=== PATIENT | male | born 1980 | race Two or more races ===

== ENCOUNTER 2019-10-25 10:02 | Emergency (ER) | payer OTHER ==
[~2019-10-25] VITALS: Ht 167.6 cm; Wt 80.0 kg
[2019-10-25] MEDS ORDERED: IV NORMAL SALINE 1000ML BAG 1,000 ML IV SCH (11:08)
[2019-10-25] MEDS ORDERED: ONDANSETRON PF 4 MG/2 ML VIAL. IVP ONE (11:15)
[2019-10-25] MEDS ORDERED: MORPHINE SULFATE 4 MG/ML VIAL. IV/SQ PRN (11:15)
--- NOTE | 2019-10-25 11:15 | PHYS DOC ---
General Adult EDM: Chief Complaint: ABDOMINAL PAIN HPI: HPI: 39-year-old male with no significant past medical history, resents to the ED with his with complaints of sudden onset sharp stabbing nonradiating abdominal pain located just under his bellybutton and now in his right lower quadrant with associated nausea and sweating, that started this morning- reports he's been curled up in a ball since. Pain is worsened with any deep breaths or coughing. Pain is manageable when lying still. No pain prior to sleep - ate spicy beef jerkey, pizza and bbq last night for dinner (hasn't been able to eat/drink today), no recent alcohol/drug use. PSH-head surgery 2/2 screw in his head. LBM was brown, 2 days ago. Review of systems: Denies associated fever, chills, sore throat, cough, vomiting, diarrhea, back pain, genital pain or rash, dysuria, hematuria, flank pain, melena, hematochezia, leg swelling, headache, neck stiffness, hemoptysis, chest pain or pressure, dyspnea. PMD is Fazal Gordon Current Medications: Current Medications Medications (Trade) Dose Ordered Sig/Natalia Start Time Stop Time Status Last Admin Dose Admin Morphine Sulfate (Morphine Sulfate) 4 mg PRN Q15MIN PRN 10/25/19 11:15 10/26/19 11:14 UNV Ondansetron HCl (Zofran) 4 mg 1X ONCE 10/25/19 11:15 10/25/19 11:16 UNV Sodium Chloride 1,000 ml @ 1,000 mls/hr Q1H 10/25/19 11:08 10/25/19 12:07 UNV Physical Exam: PE: Constitutional: Well developed, well nourished, no acute distress, non-toxic appearance. [] HENT: Normocephalic, atraumatic, oropharynx moist, Eyes: EOMI, conjunctiva normal, no discharge. [] Neck: Normal range of motion, no tenderness, supple, no stridor. [] Cardiovascular:Heart rate regular rhythm, no murmur [] Lungs & Thorax: Bilateral breath sounds clear to auscultation [] Abdomen: Bowel sounds normal, soft, +rlq ttp, no masses, no pulsatile masses, no rovsing sign, no murphys sign Skin: Warm, dry, no erythema, no rash. [] Back: No tenderness, no CVA tenderness. [] Extremities: No tenderness, no cyanosis, no clubbing, ROM intact, no edema. [] Neurologic: Alert and oriented X 3, normal motor function, normal sensory function, no focal deficits noted. [] Psychologic: Affect normal, judgement normal, mood normal. [] EKG: EKG: [] Radiology/Procedures: Radiology/Procedures: IMAGING REPORT Signed PATIENT: FARIDA SNELL AACCOUNT: [id number] : 1980 LOCATION: ER AGE: 39 SEX: M EXAM STATUS: REG ER ORD. PHYSICIAN: RACHELLE NUNEZ DO REASON: RLQ pain today PROCEDURE: CT ABD PELV W/ IV CONTRST ONLY Examination: CT of the abdomen pelvis with IV contrast HISTORY: History of right lower quadrant abdominal pain COMPARISON: None available Technique: Axial CT images of the abdomen pelvis were performed with IV contrast. Coronal and sagittal reformats are performed Exposure: One or more of the following individualized dose reduction techniques were utilized for this examination: 1. Automated exposure control 2. Adjustment of the mA and/or kV according to patient size 3. Use of iterative reconstruction technique FINDINGS: Minimal bibasilar lung atelectasis. No evidence of free air identified in the abdomen. Decreased attenuation noted in the liver likely hepatic steatosis. The spleen, adrenals grossly appears unremarkable. Gallbladder is mildly distended. The stomach is mildly distended with visualized pancreas grossly appears unremarkable. The small bowel is nondilated. Appendix is normal. Feces and gas noted in the colon Urinary bladder is mildly distended The bilateral kidneys enhance symmetrically No evidence of lytic bony destructive lesion. IMPRESSION: 1. No acute intra-abdominal findings. 2. Hepatic steatosis. Course & Med Decision Making: Course & Med Decision Making Pertinent Labs and Imaging studies reviewed. (See chart for details) Concern for right lower quadrant abdominal pain, on reevaluation patient states pain resolved after he was given IV morphine. Patient states pain is very positional and worsens with any increased abdominal pressure. 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 Labs show no leukocytosis, patient is afebrile, urinalysis normal and no acute process on CT abdomen pelvis (normal appendix, some gas and feces noted in colon, mildly dilated gallbladder but patient has no right upper quadrant pain). Will DC home with analgesia and stool softeners with strict ED return precautions for worsening or severe abdominal pain or dehydration or fever. Encouraged urgent outpatient follow-up with PMD and GI. Life- threatening processes were considered but are low suspicion at this time, given history and physical exam. Pt was educated on all prescription medications and adverse effects. All patient's questions were answered and pt was stable at time of discharge. Differential includes aortic dissection, aortic aneurysm, acute coronary syndrome, surgical abdomen (appendicitis, cholecystitis, ischemic bowel, strangu lated hernia, etc), bowel obstruction or volvulus, bladder outlet obstruction, gastrointestinal bleeding, inflammatory bowel disease, peptic ulcer disease, sepsis, diverticular disease, ureterolithiasis, nephrolithiasis, ovarian or testicular torsion, ectopic I spoken with the patient and her caregivers. I explained the patient's condition, diagnoses and treatment plan based on the information available to me at this time. I have answered the patient and her caregiver's questions and addressed any concerns. The patient and her caregivers have a good understanding of patient's diagnosis, condition and treatment plan as can be expected at this point. Vital signs have been stable. Patient's condition is stable and appropriate for discharge from the emergency department. Patient will pursue further outpatient evaluation with primary care physician or other designated or consulting physician as outlined in the discharge instructions. The patient and/or caregivers are agreeable to this plan of care and follow-up instructions have been explained in detail. The patient and/or caregivers have received these instructions in written form and have expressed an understanding of the discharge instructions. The patient and/or caregivers are aware that any significant change of condition or worsening of symptoms should prompt immediate return to this or the closest emergency department or call to 911. Tatiana Disclaimer: Tatiana Disclaimer: This electronic medical record was generated, in whole or in part, using a voice recognition dictation system. Departure Departure Impression: Primary Impression: Abdominal pain Disposition: HOME, SELF-CARE Condition: STABLE Referrals: FAZAL GORDON MD (PCP) Patient Instructions: Abdominal Pain Additional Instructions: Manfred Fields MD Gastroenterology [facility] Address: [address] [place] [id number] Script[facility] Docusate Sodium (COLACE) 100 Mg Capsule 1 CAP PO BID for 7 Days, #14 CAP 0 Refills Prov: RACHELLE NUNEZ DO 10/25/19 Hydrocodone/Apap 5-325 (NORCO 5-325 TABLET) 1 Each Tablet 1 TAB PO PRN Q6HRS PRN for PAIN for 3 Days, #12 TAB 0 Refills Prov: RACHELLE NUNEZ DO 10/25/19 Justicifation of Admission Dx: Justifications for Admission: Justification of Admission Dx: N/A RACHELLE NUNEZ DO Oct 25, 2019 11:15
[2019-10-25 11:21] LABS: BASO % 1 % (0-3); EOS # 0.2 x10^3/uL (0.0-0.7); EOS % 3 % (0-3); HEMATOCRIT 47.6 % (39.0-53.0); HEMOGLOBIN 16.4 g/dL (13.0-17.5); LYMPH # 2.4 x10^3/uL (1.0-4.8); LYMPH % 36 % (24-48); MEAN CORPUSCULAR HEMOGLOBIN 32 pg (25-35); MEAN CORPUSCULAR HGB CONC 35 g/dL (31-37); MEAN CORPUSCULAR VOLUME 93 fL (79-100); MONO # 0.6 x10^3/uL (0.0-1.1); MONO % 9 % (0-9); NEUT # 3.3 x10^3/uL (1.8-7.7); NEUT % 51 % (31-73); PLATELET COUNT 230 x10^3/uL (140-400); RED CELL DISTRIBUTION WIDTH 13.3 % (11.5-14.5); WHITE BLOOD COUNT 6.5 x10^3/uL (4.0-11.0)
[2019-10-25 11:29] LABS: CALCIUM 8.2 mg/dL (8.5-10.1); CREATININE 0.9 mg/dL (0.7-1.3); POTASSIUM 4.3 mmol/L (3.5-5.1)
[2019-10-25 11:35] LABS: ALBUMIN 3.4 g/dL (3.4-5.0); ALBUMIN/GLOBULIN RATIO 1.1 (1.0-1.7); TOTAL BILIRUBIN 0.4 mg/dL (0.2-1.0); TOTAL PROTEIN 6.6 g/dL (6.4-8.2)
[2019-10-25] MEDS ORDERED: IOHEXOL 300 MG/ML 100ML VIAL. IV ONE (12:15)
[2019-10-25] MEDS ORDERED: CONTRAST GIVEN. MC PRN (12:15)
--- NOTE | 2019-10-25 13:09 | RAD ---
Examination: CT of the abdomen pelvis with IV contrast HISTORY: History of right lower quadrant abdominal pain COMPARISON: None available Technique: Axial CT images of the abdomen pelvis were performed with IV contrast. Coronal and sagittal reformats are performed Exposure: One or more of the following individualized dose reduction techniques were utilized for this examination: 1. Automated exposure control 2. Adjustment of the mA and/or kV according to patient size 3. Use of iterative reconstruction technique FINDINGS: Minimal bibasilar lung atelectasis. No evidence of free air identified in the abdomen. Decreased attenuation noted in the liver likely hepatic steatosis. The spleen, adrenals grossly appears unremarkable. Gallbladder is mildly distended. The stomach is mildly distended with visualized pancreas grossly appears unremarkable. The small bowel is nondilated. Appendix is normal. Feces and gas noted in the colon Urinary bladder is mildly distended The bilateral kidneys enhance symmetrically No evidence of lytic bony destructive lesion. IMPRESSION: 1. No acute intra-abdominal findings. 2. Hepatic steatosis. Electronically signed by: Subhash Vines MD (10/25/2019 1:06 PM) [id number]
[2019-10-25 13:25] LABS: BILIRUBIN,URINE NEGATIVE (NEG); CLARITY,URINE CLEAR; COLOR,URINE YELLOW; NITRITE,URINE NEGATIVE (NEG); PROTEIN,URINE NEGATIVE (NEG-TRACE); UROBILINOGEN,URINE 0.2 mg/dL (0.2 mg/dL)
[2019-10-25 13:39] LABS: BACTERIA,URINE 0 /HPF (0-FEW); RBC,URINE 0 /HPF (0-2); WBC,URINE 0 /HPF (0-4)
[2019-10-25] MEDS ORDERED: HYDR-3164 PO (14:29)
[2019-10-25] MEDS ORDERED: DOCU-109 PO (14:29)
[2019-10-25 14:30] VITALS: BP 118/69
== END 2019-10-25 14:53 | disposition home or self-care (01) ==
LOC: ER 10:02
DX: R10.31 Right lower quadrant pain (principal); R11.0 Nausea; R05 Cough
CPT/HCPCS: 36415; 74177; 80053; 81001; 82550; 83690; 85025; 96361; 96374; 96375; 99285; J2270; J2405; J7030; Q9967